=== PATIENT | female | born 1940 | race African-American/Black ===

== ENCOUNTER 2025-06-08 14:57 | Emergency (ER) | payer OTHER ==
[~2025-06-08] VITALS: Ht 175.3 cm; Wt 77.0 kg
[2025-06-08 15:02] VITALS: O2SAT 98
[2025-06-08] MEDS: MORPHINE SULFATE 4 MG/ML INJ (FOR IV/IM USE) IV ONE (15:41)
[2025-06-08] MEDS: ONDANSETRON HCL 4MG/2ML INJ IV ONE (15:42)
[2025-06-08 15:54] LABS: BASOPHILS % 0.2 % (0.0-2.0); EOSINOPHILS % 0.6 % (0.0-5.0); HEMATOCRIT. 40.4 % (36.0-48.0); HEMOGLOBIN. 12.7 g/dL (12.0-16.0); LYMPHOCYTES % 15.1 % (20.0-50.0); MEAN PLATELET VOLUME 8.2 fl (7.4-10.4); MONOCYTES % 4.4 % (2.0-8.0); NEUTROPHILS % 79.7 % (40.0-76.0); PLATELET 233 x1000/uL (130-400); RED BLOOD CELL COUNT 4.12 mill/uL (4.2-5.4); RED CELL DISTRIBUTION WIDTH 16.9 % (11.6-14.6)
[2025-06-08 15:59] LABS: CREATININE 1.1 mg/dL (0.6-1.0); UREA NITROGEN BLOOD 11.0 mg/dL (9-23)
[2025-06-08 18:54] LABS: INR 1.4
[2025-06-08 21:58] VITALS: BP 127/76; PULSE 69; RESP 18; TEMP 37; O2SAT 95
== END 2025-06-08 22:12 | disposition short-term general hospital (02) ==
LOC: ER 14:57
DX: S72.002A Fracture of unspecified part of neck of left femur, initial encounter for closed fracture (principal); I10 Essential (primary) hypertension; R06.02 Shortness of breath; X58.XXXA Exposure to other specified factors, initial encounter; Y93.89 Activity, other specified; Y92.89 Other specified places as the place of occurrence of the external cause; Y99.8 Other external cause status
CPT/HCPCS: 99285; 96374; 71045; 96375; 80048; 83880; 85025; 85610; 86850; 86900; 86901; 36415; 73552; J2405; J2270; A4606

== ENCOUNTER 2025-08-19 15:17 | Emergency (ER) | payer OTHER ==
[~2025-08-19] VITALS: Ht 162.6 cm; Wt 60.0 kg
[2025-08-19 15:22] VITALS: O2SAT 99
[2025-08-19 17:57] LABS: BASOPHILS % 0.9 % (0.0-2.0); EOSINOPHILS % 1.1 % (0.0-5.0); HEMATOCRIT. 36.5 % (36.0-48.0); HEMOGLOBIN. 12.2 g/dL (12.0-16.0); LYMPHOCYTES % 26.0 % (20.0-50.0); MEAN PLATELET VOLUME 8.7 fl (7.4-10.4); MONOCYTES % 8.8 % (2.0-8.0); NEUTROPHILS % 63.2 % (40.0-76.0); PLATELET 344 x1000/uL (130-400); RED BLOOD CELL COUNT 4.00 mill/uL (4.2-5.4); RED CELL DISTRIBUTION WIDTH 17.6 % (11.6-14.6)
[2025-08-19 18:22] LABS: CREATININE 0.8 mg/dL (0.6-1.0); UREA NITROGEN BLOOD 8 mg/dL (9-23)
[2025-08-19 18:23] LABS: PROTEIN TOTAL 7.2 g/dL (6.0-8.3)
[2025-08-19 18:24] LABS: ASPARTATE AMINOTRANSFERASE 22 IU/L (<34); BILIRUBIN TOTAL 0.7 mg/dL (0.1-1.0)
[2025-08-19 21:59] VITALS: BP 155/83; PULSE 61; RESP 15; TEMP 36.6; O2SAT 99
== END 2025-08-19 22:18 | disposition short-term general hospital (02) ==
LOC: ER 15:17 → CMPBEDREQ 22:49
DX: S72.402A Unspecified fracture of lower end of left femur, initial encounter for closed fracture (principal); S82.001A Unspecified fracture of right patella, initial encounter for closed fracture; I10 Essential (primary) hypertension; X58.XXXA Exposure to other specified factors, initial encounter; Y93.89 Activity, other specified; Y92.89 Other specified places as the place of occurrence of the external cause; Y99.8 Other external cause status
CPT/HCPCS: 99285; 80053; 85025; 36415; 73560; A4615